=== PATIENT | female | born 1940 | race African-American/Black ===

== ENCOUNTER → 2022-02-21 | Outpatient (CLI) | payer MEDICARE, MEDICAID ==
[~2022-02-21] MED LIST: IOHEXOL-300 100 ML BOTTLE ONE
== END | disposition home or self-care (01) ==
LOC: CT 07:37
DX: M48.56XA Collapsed vertebra, not elsewhere classified, lumbar region, initial encounter for fracture (principal); K80.80 Other cholelithiasis without obstruction; R06.02 Shortness of breath
CPT/HCPCS: 71270; 74178; C1893; Q9967

== ENCOUNTER → 2022-12-25 | Outpatient (CLI) | payer MEDICARE, MEDICAID | END | disposition home or self-care (01) | LOC: CT 11:14 | DX: R97.1 Elevated cancer antigen 125 [CA 125] (principal); K80.20 Calculus of gallbladder without cholecystitis without obstruction; I51.7 Cardiomegaly; D25.9 Leiomyoma of uterus, unspecified | CPT/HCPCS: 71270; 74178; Q9967 ==